=== PATIENT | female | born 1995 | race Caucasian/White ===

== ENCOUNTER 2021-08-01 10:43 | Observation (INO) | payer OTHER, SELFPAY ==
[~2021-08-01] VITALS: Ht 167.6 cm; Wt 82.2 kg
[~2021-08-01 10:43] MED LIST: EPINEPHrine INJ 1 MG/ML 1ML AMP As Ordered ONE; GENTAMICIN SULF 80MG/2ML VIAL As Ordered ONE; LIDOCAINE 2% MDV 20ML VIAL As Ordered ONE; WELL100T2 PO; ceFAZolin SOD 2 GM in IV 1 EA IV ONE
[2021-08-01] MEDS ORDERED: ROCURONIUM BROMIDE 50 MG/5 ML VIAL As Ordered ONE (10:56)
[2021-08-01] MEDS ORDERED: MIDAZOLAM INJ 2MG/2ML VIAL (J2250 PER 1MG) As Ordered ONE (10:56)
[2021-08-01] MEDS ORDERED: fentaNYL 100 MCG/2 ML INJECTION As Ordered ONE ×2 (10:56→14:20)
[2021-08-01] MEDS ORDERED: ONDANSETRON 4MG 2ML VIAL As Ordered ONE (10:56)
[2021-08-01] MEDS ORDERED: LIDOCAINE 2% 100MG/5ML SDV (FOR ANES.) As Ordered ONE (10:56)
[2021-08-01] MEDS ORDERED: dexameTHASONE 4 MG/ML 1ML VIAL (J1100 PER 1MG) As Ordered ONE (10:56)
[2021-08-01] MEDS ORDERED: propofoL 200 MG/20 ML VIAL As Ordered ONE (10:58)
[2021-08-01 11:17] LABS: HEMATOCRIT 43.2 % (36.0-47.0); HEMOGLOBIN 14.9 g/dl (12.0-15.5); MEAN CORPUSCULAR HEMOGLOBIN 29.2 pg (27.0-33.0); MEAN CORPUSCULAR HGB CONC 34.5 g/dl (32.0-36.5); MEAN CORPUSCULAR VOLUME 84.7 fl (80.0-96.0); PLATELET COUNT, AUTOMATED 236 10^3/uL (150-450); WHITE BLOOD COUNT 6.1 10^3/uL (4.0-10.0)
[2021-08-01] MEDS ORDERED: LR 1,000 ML IV SCH ×2 (11:30→15:10)
[2021-08-01] MEDS ORDERED: EPINEPHrine INJ 1 MG/ML 1ML AMP As Ordered ONE (13:12)
[2021-08-01] MEDS ORDERED: LIDOCAINE 1% MDV 20ML VIAL As Ordered ONE (13:12)
[2021-08-01] MEDS ORDERED: KETAMINE HCL 200 MG/20 ML VIAL As Ordered ONE (14:10)
[2021-08-01] MEDS ORDERED: SUGAMMADEX SODIUM 500 MG/5 ML VIAL (BRIDION) As Ordered ONE (14:55)
[2021-08-01] MEDS ORDERED: ONDANSETRON 4MG 2ML VIAL IV PRN ×2 (15:10→15:20)
[2021-08-01] MEDS ORDERED: fentaNYL 100 MCG/2 ML INJECTION IV PRN (15:10)
[2021-08-01] MEDS ORDERED: traMADol 50 MG TAB PO PRN (15:20)
[2021-08-01] MEDS ORDERED: ACETAMINOPHEN TAB 650MG DOSE (2X325MG) PO PRN (15:20)
[2021-08-01] MEDS: MEPERIDINE INJ 25 MG/ML VIAL (J2175) IV PRN ×2 (15:51→15:57)
[2021-08-01] MEDS: HYDROMORPHONE HCL 0.5 MG/ 0.5 ML SYRINGE (J1170 PER 1) IV PRN ×2 (15:51→15:57)
[2021-08-01] MEDS: oxyCODONE 5MG TAB PO PRN ×2 (15:52→16:27)
[2021-08-01 17:45] VITALS: BP 136/72
[2021-08-01] MEDS: LR 1,000 ML IV SCH (18:04)
[2021-08-01 18:15] VITALS: BP 126/71
[2021-08-01 18:45] VITALS: BP 126/71
[2021-08-01 19:45] VITALS: BP 124/71
[2021-08-01 20:48] VITALS: BP 118/65
[2021-08-01] MEDS ORDERED: ceFAZolin SOD 2 GM in IV 1 EA IV ONE (21:00)
[2021-08-01 23:00] VITALS: BP 114/59
[2021-08-02 02:00] VITALS: BP 115/59
[2021-08-02 06:08] VITALS: BP 113/57
[2021-08-02] MEDS: LR 1,000 ML IV SCH (06:45)
[2021-08-02] MEDS ORDERED: TRAM50TA2 PO (09:34)
== END 2021-08-02 10:50 | disposition home or self-care (01) ==
LOC: M SDC 10:43 → M MS5PR 10:44
PROVIDERS: ADMIT Plastic Surgery Surgery of the Hand; ATTEND Plastic Surgery Surgery of the Hand
DX: E88.1 Lipodystrophy, not elsewhere classified (principal); Z79.899 Other long term (current) drug therapy
CPT/HCPCS: 15877; 36415; 81025; 85027; 88300; J0171; J0690; J1100; J1170; J2175; J2250; J2405; J3010

== ENCOUNTER → 2022-03-21 | Outpatient (CLI) | payer OTHER ==
[~2022-03-21] MED LIST changes: -EPINEPHrine INJ 1 MG/ML 1ML AMP As Ordered ONE; -GENTAMICIN SULF 80MG/2ML VIAL As Ordered ONE; -LIDOCAINE 2% MDV 20ML VIAL As Ordered ONE; +TRAM50TA2 PO; -ceFAZolin SOD 2 GM in IV 1 EA IV ONE
== END ==
LOC: M RAD 14:31
PROVIDERS: ATTEND Student in an Organized Health Care Education/Training Program
DX: N92.6 Irregular menstruation, unspecified (principal)

== ENCOUNTER → 2022-03-21 | Outpatient (CLI) | payer OTHER ==
[2022-03-21 17:46] LABS: MAGNESIUM LEVEL 1.9 MG/DL (1.8-2.4)
[2022-03-27 14:08] LABS: VITAMIN D 1,25 DIHYDROXY 91.2 pg/mL (24.8-81.5); VITAMIN E(ALPHA TOCOPHEROL) 12.1 mg/L (5.9-19.4); VITAMIN E(GAMMA TOCOPHEROL) 0.9 mg/L (0.7-4.9)
== END ==
LOC: M WUC 13:54
PROVIDERS: ATTEND Student in an Organized Health Care Education/Training Program
DX: N92.6 Irregular menstruation, unspecified (principal)

== ENCOUNTER → 2023-05-18 | Outpatient (REF) | payer OTHER | LOC: M LAB REF 17:45 | PROVIDERS: ATTEND Physician Assistant Medical | DX: J02.9 Acute pharyngitis, unspecified (principal) ==